=== PATIENT | male | born 1965 | race Hispanic/Latino ===

== ENCOUNTER → 2019-10-03 | Outpatient (CLI) | payer OTHER ==
--- NOTE | 2019-10-03 09:01 | Diagnostic Imaging Report ---
EXAM: US ABDOMEN COMPLETE DATE: 10/03/2019 7:44 AM INDICATION: Right upper quadrant abdominal pain COMPARISON: None TECHNIQUE: Transverse and longitudinal almeida scale and color doppler sonographic images of the upper abdomen were obtained. FINDINGS: LIVER 12.4 cm in the right midclavicular line. Increased echogenicity of the liver with mildly nodular contour, no masses. Areas of heterogeneous echogenicity in the liver may represent areas of focal fatty sparing. SPLEEN 8.7 cm in maximum diameter. Normal echogenicity, no masses. GALLBLADDER 2.2 cm echogenic stone at the gallbladder neck and some sludge in the gallbladder. No gallbladder wall thickening or pericholecystic fluid. Negative sonographic Guadarrama's sign. Gallbladder wall measures 2 mm. BILE DUCTS No intra nor extra-hepatic biliary dilation. Common bile duct measures 3mm PANCREAS: Visualized portions are normal. RIGHT KIDNEY: 9.2 cm Echogenicity: Normal Collecting System: No hydronephrosis Stones: None Cyst/Mass: None LEFT KIDNEY: 10.8 cm Echogenicity: Normal Collecting System: No hydronephrosis Stones: None Cyst/Mass: None VESSELS: Aorta: Visualized portions are within normal size limits Inferior Vena Cava: Visualized portions are normal Main Portal Vein: 0.8 cm, normal size with hepatopetal flow. FREE FLUID: None IMPRESSION: Cholelithiasis and gallbladder sludge without specific sonographic evidence of cholecystitis. Diffuse hepatic steatosis and mildly nodular liver surface contour compatible with early cirrhosis. Signed by: Myron Adam MD on 10/03/2019 8:58 AM
== END ==
LOC: US 07:27
PROVIDERS: ATTEND Internal Medicine Gastroenterology
DX: R10.11 Right upper quadrant pain (principal); I10 Essential (primary) hypertension; E66.3 Overweight; Z71.3 Dietary counseling and surveillance
CPT/HCPCS: 76700